=== PATIENT | female | born 1985 | race Caucasian/White ===

== ENCOUNTER → 2021-09-16 | Emergency (ER) | payer MEDICAID, OTHER ==
[~2021-09-16] VITALS: Ht 154.9 cm; Wt 56.2 kg
[~2021-09-16] MED LIST: HALOPERIDOL IM 5 MG/ML VIAL IM ONE; KETAMINE 500 MG/5 ML VIAL IM ONE; LORazepam 2 MG/ML VIAL IM ONE; diphenhydrAMINE 50 MG/ML VIAL IM ONE
[2021-09-16 17:30] VITALS: BP 133/78
--- NOTE | 2021-09-16 17:32 | NUR ---
35 Y/O FEMALE BIBA C/O ALTERED STATUS. PER EMS PT FOUND ON THE STREET. PT WILL NOT GIVE NAME, .UNABLE TO OBTAIN INFORMATION FROM PATIENT AT THIS TIME. VSS. B/P 133/78, R 21, O2 SAT 97% ON ROOM AIR.
[2021-09-16 18:44] LABS: BASOPHILS # (AUTO) 0.1 K/uL (0.00-0.22); BASOPHILS % (AUTO) 1.3 % (0.0-2.0); EOSINOPHILS # (AUTO) 0.1 K/uL (0-0.4); EOSINOPHILS % (AUTO) 1.3 % (0.0-4.0); HEMATOCRIT 31.1 % (36-48); HEMOGLOBIN 9.8 g/dL (12.0-16.0); LYMPHOCYTES # (AUTO) 2.4 K/uL (2.5-16.5); LYMPHOCYTES % (AUTO) 27.3 % (20.5-51.1); MEAN CORPUSCULAR HEMOGLOBIN 20 pg (27-31); MEAN CORPUSCULAR HGB CONC 32 g/dL (33-37); MEAN CORPUSCULAR VOLUME 64.2 fL (80-94); MONOCYTES # (AUTO) 0.8 K/uL (0.8-1.0); MONOCYTES % (AUTO) 9.2 % (1.7-9.3); NEUTROPHILS # (AUTO) 5.4 K/uL (1.8-7.7); NEUTROPHILS % (AUTO) 60.9 % (42.2-75.2); PLATELET COUNT (AUTO) 473 K/uL (140-450); RED BLOOD CELL COUNT(AUTO) 4.84 MIL/uL (4.20-5.40); RED CELL DISTRIBUTION WIDTH 21.5 % (11.6-13.7); WHITE BLOOD COUNT (AUTO) 8.8 K/uL (4.8-10.8)
[2021-09-16 19:11] LABS: ACETAMINOPHEN 3.2 ug/ml (10-30); ALBUMIN 3.5 g/dL (3.4-5.0); ANION GAP 13.4 (8-16); ASPARTATE AMINOTRANSFERASE 91 U/L (15-37); CARBON DIOXIDE 21.6 mmol/L (21-32); CHLORIDE 107 mmol/L (98-107); CREATININE 0.8 mg/dL (0.6-1.3); GFR ARICAN-AMERICAN 104 mL/min (>90); GLUCOSE 73 mg/dL (74-106); SODIUM SERUM 139 mmol/L (136-145); TOTAL BILIRUBIN 0.4 mg/dL (0.0-1.0); UREA NITROGEN, BLOOD 12 mg/dL (7-18)
[2021-09-16 19:12] LABS: SALICYLATE < 2.8 mg/dL (2.8-20.0)
--- NOTE | 2021-09-16 19:20 | NUR ---
Pt report given to KYLE MARRERO. Transfer of care at this time.
--- NOTE | 2021-09-17 00:13 | NUR ---
per patient was able to state first name, last name, and how pt got to the hospital. patient asked for water and was able to bring down liquid with no difficulty. ER MD aware.
--- NOTE | 2021-09-17 04:12 | NUR ---
ATTEMPTED TO CALL FRIEND ISA WEBER FOR INFORMATION. NO ANSWER AT THIS TIME.
--- NOTE | 2021-09-17 04:18 | NUR ---
patient refusing IV and to go use the bathroom reporting "i dont have to go". patient is aaox4. ER MD aware and informed that it is fine if patient has not provided urine.
--- NOTE | 2021-09-17 04:18 | NUR ---
Rebecca mathur in ED - 09/17/21 at 0626 by NIRMAL patient refusing IV and to go use the bathroom reporting "i dont have to go". patient is aaox4.
--- NOTE | 2021-09-17 04:20 | NUR ---
SWABBED PATIENT FOR COVID AND SENT TO LAB
--- NOTE | 2021-09-17 07:13 | NUR ---
Pt report given to Socorro WRIGHT. Transfer of care at this time.
--- NOTE | 2021-09-17 12:09 | NUR ---
PT APPEARS TO BE RESTING IN NO APPARENT DISTRESS, BREATHING EVEN AND UNLABORED. MONITOR IN PLACE.
--- NOTE | 2021-09-17 12:40 | NUR ---
PT DOING BEDSIDE TELEPSYCH CONSULT WITH . PER PT IS FALLING ASLEEP AND IS BARELY RESPONDING. RECOMMENDS ANOTHER CONSULT WHEN PATIENT IS MORE ALERT AND IS ABLE TO ANSWER QUESTIONS.
[2021-09-17 14:09] VITALS: BP 104/65
--- NOTE | 2021-09-17 14:09 | NUR ---
Patient discharged with v/s stable. Written and verbal after care instructions given and explained. Patient verbalized understanding. Ambulatory with steady gait. All questions addressed prior to discharge. Advised to follow up with PMD.
== END | disposition home or self-care (01) ==
LOC: EDBD 17:30 → MED 17:30
DX: G93.40 Encephalopathy, unspecified (principal); Z20.822 Contact with and (suspected) exposure to COVID-19; F19.10 Other psychoactive substance abuse, uncomplicated; R45.851 Suicidal ideations; F10.129 Alcohol abuse with intoxication, unspecified; R41.82 Altered mental status, unspecified
CPT/HCPCS: 80053; 85025; 87426; 93005; 96372; 99291; 99292; G0480; G0482; J1200; J1630; J2060; 99285